=== PATIENT | male | born 1960 | race Two or more races ===

== ENCOUNTER → 2018-09-18 | Outpatient (CLI) | payer MEDICAID ==
[~2018-09-18] MED LIST: AMLO10TA8 PO; ASPI-496 PO; ATOR40TA78 PO; BUTA1CAP59 PO; CELE50CA PO; DIVA500T2 PO; ERGO500017 PO; ESOM40CA PO; GABA600T7 PO; GLIP10TA13 PO; HYDR-3307 PO; HYDR25TA6 PO; HYDR7CRE TP; LISI-170 PO; METF500T17 PO; METH500T97 PO; MONT10TA6 PO; NPH,100V5 SC; PARO20TA98 PO; PSYL174P2 PO; QUET50TA5 PO; SUMA50TA3 PO; TAMS-11 PO
[2018-09-18 14:18] LABS: BASOPHILS # (AUTO) 0.05 x10^3/uL (0-0.1); BASOPHILS % (AUTO) 0 % (0-1); EOSINOPHILS # (AUTO) 0.01 x10^3/uL (0-0.4); EOSINOPHILS % (AUTO) 0 % (1-7); LYMPHOCYTES # (AUTO) 2.13 x10^3/uL (1-3.4); LYMPHOCYTES % (AUTO) 14 % (22-44); MD NO; MEAN CORPUSCULAR HEMOGLOBIN 31.7 pg (27.5-34.5); MEAN CORPUSCULAR HGB CONC 33.8 g/dL (33.2-36.2); MEAN CORPUSCULAR VOLUME 93.7 fL (81-97); MEAN PLATELET VOLUME 8.9 fL (7.4-10.4); MONOCYTES # (AUTO) 1.07 x10^3/uL (0.2-0.8); MONOCYTES % (AUTO) 7 % (2-9); NEUTROPHILS # (AUTO) 12.02 x10^3/uL (1.8-6.8); NEUTROPHILS % (AUTO) 79 % (42-75); PLATELET COUNT 372 x10^3/uL (130-400); RED BLOOD COUNT 5.18 x10^6/uL (4.38-5.82); RED CELL DISTRIBUTION WIDTH 14.3 % (9.4-14.8)
[2018-09-18 14:24] LABS: INTERNATIONAL NORMALIZED RATIO 0.93 (0.93-1.1); PROTHROMBIN TIME 9.9 Seconds (9.6-11.5)
[2018-09-18 14:26] LABS: ALANINE AMINOTRANSFERASE 63 U/L (12-78); ALBUMIN 3.6 g/dL (3.4-5.0); ANION GAP 8 mmol/L (5-15); CALCIUM 9.4 mg/dL (8.5-10.1); CHLORIDE 106 mmol/L (98-107); CREATININE 1.11 mg/dL (0.7-1.3)
[2018-09-18 14:29] LABS: MICROSCOPIC NOT IND
[2018-09-18 14:31] LABS: ALKALINE PHOSPHATASE 92 U/L (45-117); BILIRUBIN,TOTAL 0.3 mg/dL (0.2-1.0); TOTAL PROTEIN 7.3 g/dL (6.4-8.2)
[2018-09-18 14:39] LABS: HEMOGLOBIN A1C 6.9 % (4.2-6.3)
[2018-09-18 14:40] LABS: CULTURE INDICATED? NO
== END | disposition home or self-care (01) ==
LOC: STAR 12:58
PROVIDERS: ATTEND Orthopaedic Surgery
DX: Z01.818 Encounter for other preprocedural examination (principal); M25.562 Pain in left knee; M17.12 Unilateral primary osteoarthritis, left knee
CPT/HCPCS: 36415; 80053; 81003; 83036; 85025; 85610; 85730; 87081; 87806; 93005; G0475

== ENCOUNTER 2020-06-09 18:57 | Observation (INO) | payer MEDICARE, MEDICAID ==
[~2020-06-09] VITALS: Ht 165.1 cm; Wt 76.0 kg
[~2020-06-09 18:57] MED LIST changes: +ASPI81TA45 PO; +AZEL6DRO2 EACHEYE; +CELE200C PO; +ESOM20CA PO; +HYDR-3246 PO; -HYDR-3307 PO; +INSU100I34 SC; +LORA-247 PO; +METH750T2 PO; +METO10TA2 PO; +NICO-487 TD; +ONDA4TAB7 PO; +POLY17PO29 PO; +TIZA4TAB2 PO; +TOPI50TA8 PO
--- NOTE | 2020-06-09 19:06 | NUR ---
PT BIB EMS, HAVING CHEST PAIN DESCRIBED SOMBODY SITTING ON HIS CHEST. POT GIVEN 324 ASPRIN, AQND 0.4 MG NITRO PER EMS. PT HAS 8/10 MPAIN RIGHT NOW AND IS RADIATING TO BACK. PAIN ON PALPATION WELL. IV PLACED BY EMS. EKG DONE AT BEDSIDE, PLACED ON ALL MONITORS. AWAITING ERP EVAL.
[2020-06-09] MEDS ORDERED: NITROGLYCERIN SINGLE TAB 0.4 MG SL ONE (19:14)
[2020-06-09] MEDS ORDERED: ACETAMINOPHEN 325 MG TABLET ONE (19:14)
[2020-06-09] MEDS: NITROGLYCERIN SINGLE TAB 0.4 MG SL PRN ×2 (19:23→19:30)
[2020-06-09 19:28] LABS: BASOPHILS % (AUTO) 1 % (0-1); EOSINOPHILS % (AUTO) 2 % (1-7); LYMPHOCYTES % (AUTO) 18 % (22-44); MEAN CORPUSCULAR HEMOGLOBIN 27.1 pg (27.5-34.5); MEAN CORPUSCULAR HGB CONC 33.3 g/dL (33.2-36.2); MEAN PLATELET VOLUME 8.6 fL (7.4-10.4); MONOCYTES % (AUTO) 10 % (2-9); NEUTROPHILS % (AUTO) 69 % (42-75); PLATELET COUNT 307 x10^3/uL (130-400); RED BLOOD COUNT 5.43 x10^6/uL (4.38-5.82); RED CELL DISTRIBUTION WIDTH 22.2 % (9.4-14.8)
[2020-06-09] MEDS ORDERED: ACETAMINOPHEN 325 MG TABLET PO ONE (19:30)
[2020-06-09 19:41] LABS: ALANINE AMINOTRANSFERASE 24 U/L (12-78); ALBUMIN 3.2 g/dL (3.4-5.0); ANION GAP 6 mmol/L (5-15); CHLORIDE 105 mmol/L (98-107)
[2020-06-09 19:46] LABS: ALKALINE PHOSPHATASE 100 U/L (45-117); BILIRUBIN,TOTAL 0.6 mg/dL (0.2-1.0); TOTAL PROTEIN 6.7 g/dL (6.4-8.2); TROPONIN I < 0.015 ng/mL (0.000-0.045)
[2020-06-09 19:54] LABS: MD MORPH REVIEW ONLY
[2020-06-09 19:55] LABS: <PLATELET ESTIMATE> ADEQUATE; <PLT MORPHOLOGY> NORMAL PLT MORPH; ANISOCYTOSIS 1+; MICROCYTOSIS 1+; OVALOCYTES 1+
[2020-06-09] MEDS ORDERED: MAALOX/HYOSCYAMINE/LIDOCAINE 45 ML BTL ONE (19:57)
[2020-06-09] MEDS ORDERED: MAALOX/HYOSCYAMINE/LIDOCAINE 45 ML BTL PO ONE (20:00)
[2020-06-09] MEDS ORDERED: MORPHINE SULFATE 4 MG/ML, 1ML IVPush ONE (20:30)
[2020-06-09] MEDS ORDERED: MORPHINE SULFATE 4 MG/ML, 1ML ONE (20:38)
[2020-06-09] MEDS ORDERED: SUMATRIPTAN 50 MG TABLET PO PRN (21:00)
[2020-06-09] MEDS ORDERED: QUETIAPINE 100MG TABLET PO SCH (21:00)
[2020-06-09] MEDS ORDERED: ATORVASTATIN 40 MG TABLET PO SCH (21:00)
[2020-06-09] MEDS ORDERED: DIVALPROEX 500 MG TABLET.DR PO SCH (21:00)
[2020-06-09] MEDS ORDERED: ONDANSETRON 4 MG TABLET PO PRN (21:00)
[2020-06-09] MEDS ORDERED: PAROXETINE 10 MG TABLET PO SCH (21:00)
[2020-06-09] MEDS ORDERED: METHOCARBAMOL 750 MG TABLET PO PRN (21:00)
[2020-06-09] MEDS ORDERED: DOCUSATE 100 MG CAPSULE PO PRN (21:00)
[2020-06-09] MEDS ORDERED: POLYETHYLENE GLYCOL 17 GM PACKET PO PRN (21:00)
[2020-06-09] MEDS ORDERED: MORPHINE SULFATE 4 MG/ML, 1ML IVPush PRN (21:00)
[2020-06-09] MEDS ORDERED: NITROGLYCERIN 0.4 MG BOTTLE (25 TABS) SL PRN (21:00)
[2020-06-09] MEDS ORDERED: ACETAMINOPHEN 325 MG TABLET PO PRN (21:00)
[2020-06-09] MEDS: SODIUM CHLORIDE FLUSH 10ML SYR IVF SCH (22:14)
[2020-06-09] MEDS: TOPIRAMATE 25 MG TABLET PO SCH (22:15)
[2020-06-09] MEDS: GABAPENTIN 300 MG CAPSULE PO SCH (22:15)
[2020-06-09] MEDS: TIZANIDINE 4MG TABLET PO SCH (22:16)
[2020-06-09] MEDS: ASPIRIN 81 MG TABLET EC PO SCH (22:16)
[2020-06-09] MEDS: HEPARIN 5,000 UNITS/ML, 1ML SQ SCH (22:16)
[2020-06-09] MEDS: metFORMIN 500 MG TABLET PO SCH (22:16)
[2020-06-10 00:32] VITALS: BP 125/79
[2020-06-10 00:34] VITALS: BP 142/87
[2020-06-10 00:40] VITALS: BP 117/67
[2020-06-10] MEDS ORDERED: NICOTINE 7 MG/24 HR PATCH.TD24 TD SCH (01:00)
[2020-06-10] MEDS ORDERED: FLU VACC QS2020-21(6MOS UP)/PF 60MCG/0.5 ML SYR IM ONE (01:00)
[2020-06-10 02:05] LABS: BASOPHILS % (AUTO) 1 % (0-1); EOSINOPHILS % (AUTO) 2 % (1-7); LYMPHOCYTES % (AUTO) 26 % (22-44); MEAN CORPUSCULAR HEMOGLOBIN 26.4 pg (27.5-34.5); MEAN CORPUSCULAR HGB CONC 32.5 g/dL (33.2-36.2); MEAN PLATELET VOLUME 8.5 fL (7.4-10.4); MONOCYTES % (AUTO) 12 % (2-9); NEUTROPHILS % (AUTO) 60 % (42-75); PLATELET COUNT 274 x10^3/uL (130-400); RED BLOOD COUNT 5.26 x10^6/uL (4.38-5.82); RED CELL DISTRIBUTION WIDTH 21.9 % (9.4-14.8)
[2020-06-10 02:13] LABS: MD NO
[2020-06-10 02:14] LABS: TROPONIN I < 0.015 ng/mL (0.000-0.045)
[2020-06-10 02:15] LABS: ANION GAP 5 mmol/L (5-15); CALCIUM 8.6 mg/dL (8.5-10.1); CHLORIDE 107 mmol/L (98-107); CHOLESTEROL, TOTAL 157 mg/dL (140-239); TRIGLYCERIDES 186 mg/dL (50-200); VLDL CHOLESTEROL 37 mg/dL (0-25)
[2020-06-10 02:17] LABS: CHOL/HDL RATIO 5.1; HDL CHOL % 20 % (26-37); HDL CHOLESTEROL (DIRECT) 31 mg/dL (40-60); LDL CHOLESTEROL,CALCULATED 89 mg/dL (54-169); LDL/HDL RATIO 2.9 (0.5-3.0)
[2020-06-10] MEDS: HEPARIN 5,000 UNITS/ML, 1ML SQ SCH ×2 (05:55→13:34)
[2020-06-10] MEDS ORDERED: OMEPRAZOLE 20 MG CAPSULE.DR PO SCH (06:00)
[2020-06-10 07:04] VITALS: BP 137/85
[2020-06-10 07:52] LABS: TROPONIN I < 0.015 ng/mL (0.000-0.045)
[2020-06-10] MEDS: SODIUM CHLORIDE FLUSH 10ML SYR IVF SCH (08:36)
[2020-06-10] MEDS: GABAPENTIN 300 MG CAPSULE PO SCH ×2 (08:36→16:30)
[2020-06-10] MEDS: ASPIRIN 81 MG TABLET EC PO SCH (08:37)
[2020-06-10] MEDS: TIZANIDINE 4MG TABLET PO SCH (08:38)
[2020-06-10] MEDS: metFORMIN 500 MG TABLET PO SCH (08:39)
[2020-06-10] MEDS: TOPIRAMATE 25 MG TABLET PO SCH (08:40)
[2020-06-10] MEDS ORDERED: LORATADINE 10 MG TABLET PO SCH (09:00)
[2020-06-10] MEDS ORDERED: HYDROCHLOROTHIAZIDE 25 MG TABLET PO SCH (09:00)
[2020-06-10] MEDS ORDERED: TAMSULOSIN 0.4 MG CAP.ER.24H PO SCH (09:00)
[2020-06-10] MEDS ORDERED: MONTELUKAST 10 MG TABLET PO SCH (09:00)
[2020-06-10] MEDS ORDERED: AMLODIPINE 10 MG TAB PO SCH (09:00)
[2020-06-10] MEDS ORDERED: LISINOPRIL 10 MG TABLET PO SCH (09:00)
[2020-06-10] MEDS ORDERED: REGADENOSON 0.4 MG/5 ML SYRINGE ONE (09:34)
[2020-06-10] MEDS ORDERED: OMNIPAQUE 350 MG/ML, 100ML BOTTLE ONE (12:39)
[2020-06-10 13:53] VITALS: BP 122/77
[2020-06-10] MEDS ORDERED: POTA10TA5 PO (16:13)
== END 2020-06-10 16:54 | disposition home or self-care (01) ==
LOC: ED 20:16 → INTOOBSV 20:30 → EDIP 20:30 → 5SO 21:31 → DCLOUNGE 06-10 16:45
PROVIDERS: ADMIT Internal Medicine; ATTEND Internal Medicine
DX: R07.89 Other chest pain (principal); E78.5 Hyperlipidemia, unspecified; I10 Essential (primary) hypertension; E11.21 Type 2 diabetes mellitus with diabetic nephropathy; N17.0 Acute kidney failure with tubular necrosis; G40.909 Epilepsy, unspecified, not intractable, without status epilepticus; D72.829 Elevated white blood cell count, unspecified; E87.6 Hypokalemia; R79.89 Other specified abnormal findings of blood chemistry; F17.200 Nicotine dependence, unspecified, uncomplicated; Z79.82 Long term (current) use of aspirin; Z79.899 Other long term (current) drug therapy; Z79.84 Long term (current) use of oral hypoglycemic drugs; Z66 Do not resuscitate; Z96.653 Presence of artificial knee joint, bilateral; Z23 Encounter for immunization
CPT/HCPCS: 36415; 71045; 71275; 78452; 80048; 80053; 80061; 83036; 83690; 84484; 85025; 85379; 90686; 93005; 93017; 96372; 96374; 99285; A9502; C9898; G0008; G0378; J1644; J2270; J2785; Q9967